=== PATIENT | female | born 1935 | race Two or more races ===

== ENCOUNTER 2016-04-27 14:15 | Outpatient (CLI) | payer MEDICARE, MEDICAID ==
[~2016-04-27 14:15] MED LIST: ALLO100T; CARV3.12; CEPH-570; DIPH25CA83; FLUR15CA14; FURO-144; GLIM2TAB; MELO7.5T12; ROSU20TA; SENN8.6T6; VALS1TAB4
[2016-04-27] MEDS ORDERED: DEXAMETHASONE SOD PHOSPHATE 4 MG/ML VIAL IJ ONE (15:30)
[2016-04-27] MEDS ORDERED: ETHYL CHLORIDE SPRAY 1 EA BOTTLE TP ONE (15:30)
== END 2016-04-27 23:59 | disposition home or self-care (01) ==
LOC: WOU 14:15
PROVIDERS: ATTEND Podiatrist Foot & Ankle Surgery
DX: M76.821 Posterior tibial tendinitis, right leg (principal); E11.42 Type 2 diabetes mellitus with diabetic polyneuropathy; E78.5 Hyperlipidemia, unspecified
CPT/HCPCS: 20550; A6402; J1100

== ENCOUNTER 2016-05-04 11:01 | Outpatient (CLI) | payer MEDICARE, MEDICAID | END 2016-05-04 23:59 | disposition home or self-care (01) | LOC: WOU 11:01 | PROVIDERS: ATTEND Podiatrist Foot & Ankle Surgery | DX: M21.071 Valgus deformity, not elsewhere classified, right ankle (principal); M21.41 Flat foot [pes planus] (acquired), right foot; B35.1 Tinea unguium; R60.0 Localized edema; E11.9 Type 2 diabetes mellitus without complications | CPT/HCPCS: G0463 ==

== ENCOUNTER 2016-08-25 19:31 | Emergency (ER) | payer MEDICARE, OTHER ==
[~2016-08-25] VITALS: Ht 152.4 cm; Wt 81.6 kg
[2016-08-25] MEDS ORDERED: MORPHINE SULFATE INJ 2 MG/ML DISP.SYRIN ONE (19:55)
[2016-08-25] MEDS ORDERED: IV SET PRIMARY 1 EA INFUS.SET MC ONE (19:55)
[2016-08-25] MEDS ORDERED: IV NS 0.9% 1,000 ML ONE (19:55)
[2016-08-25] MEDS ORDERED: ONDANSETRON HCL/PF 4 MG/2 ML VIAL ONE (19:55)
[2016-08-25 20:00] LABS: BASOPHILS % (AUTO) 0.3 % (0.0-2.0); EOSINOPHILS # (AUTO) 0.1 /CMM (0.0-0.7); EOSINOPHILS % (AUTO) 1.5 % (0.0-6.0); HEMATOCRIT 30 % (33-45); HEMOGLOBIN 10.6 g/dL (11.5-14.8); LYMPHOCYTES # (AUTO) 1.3 /CMM (0.8-4.8); LYMPHOCYTES % (AUTO) 14.3 % (20.0-44.0); MEAN CORPUSCULAR HEMOGLOBIN 30 PG (26.0-33.0); MEAN CORPUSCULAR HGB CONC 35 g/dl (31.0-36.0); MEAN CORPUSCULAR VOLUME 86 fL (82-100); MONOCYTES # (AUTO) 1.1 /CMM (0.1-1.30); MONOCYTES % (AUTO) 11.5 % (2.0-12.0); NEUTROPHILS # (AUTO) 6.8 /CMM (1.8-8.9); NEUTROPHILS % (AUTO) 72.4 % (43.0-81.0); PLATELET COUNT (AUTO) 333 /CMM (150-450); RDW COEFFICIENT OF VARIATION 12.7 (11.5-15.0); RED BLOOD CELL COUNT(AUTO) 3.49 MIL/uL (4.0-5.2); WHITE BLOOD COUNT (AUTO) 9.3 K/uL (4.3-11.0)
[2016-08-25] MEDS ORDERED: MORPHINE SULFATE INJ 2 MG/ML DISP.SYRIN IV ONE (20:00)
[2016-08-25] MEDS ORDERED: ONDANSETRON HCL/PF 4 MG/2 ML VIAL IVP ONE (20:00)
[2016-08-25] MEDS ORDERED: IV NS 0.9% 1,000 ML BAG IV ONE (20:00)
[2016-08-25 20:01] LABS: APPEARANCE,URINE Clear (CLEAR); BILIRUBIN,URINE Negative (NEGATIVE); BLOOD, URINE Trace-lysed Ery/uL (NEGATIVE); COLOR,URINE Yellow (YELLOW); KETONES,URINE Negative (NEGATIVE); LEUKOCYTE ESTERASE ,URINE Negative (NEGATIVE); NITRITE, URINE Negative (NEGATIVE); PH,URINE 5.5 (5.0-8.0); PROTEIN,URINE Negative (NEGATIVE); UGLUCOSE Negative (NEGATIVE); UROBILINOGEN,URINE 0.2 EU/dL (0.2)
[2016-08-25 20:08] LABS: CALCIUM, SERUM 8.7 mg/dL (8.5-10.1); CARBON DIOXIDE 25 mmol/L (21-32); CHLORIDE 89 mmol/L (98-107); CREATININE 1.8 mg/dL (0.6-1.3); GLUCOSE 113 mg/dL (74-106); POTASSIUM 3.3 mmol/L (3.5-5.1); SODIUM SERUM 126 mmol/L (136-145); UREA NITROGEN, BLOOD 54 mg/dL (7-18)
[2016-08-25 20:13] LABS: ALANINE AMINOTRANSFERASE 18 U/L (12-78); ALKALINE PHOSPHATASE 56 U/L (46-116); ASPARTATE AMINOTRANSFERASE 16 U/L (15-37); BILIRUBIN,DIRECT 0.1 mg/dL (0.0-0.2); BILIRUBIN,TOTAL 0.4 mg/dL (0.2-1.0); LIPASE 154 U/L (73-393); TOTAL PROTEIN, SERUM 7.3 g/dL (6.4-8.2)
[2016-08-25 20:28] LABS: BACTERIA,URINE Rare /HPF (None Seen); RBC,URINE 0-2 /HPF (0-2); SQUAMOUS EPITHELIAL CELL,UR Few /HPF (None Seen); WBC,URINE NONE SEEN /HPF (0-3)
[2016-08-25] MEDS ORDERED: LEVOFLOXACIN (750 MG) 750 MG TABLET ONE (21:12)
[2016-08-25 21:24] VITALS: BP 148/67
[2016-08-25] MEDS ORDERED: LEVOFLOXACIN (750 MG) 750 MG TABLET PO SCH (21:30)
== END 2016-08-25 21:25 | disposition home or self-care (01) ==
LOC: ER 19:34
DX: K80.50 Calculus of bile duct without cholangitis or cholecystitis without obstruction (principal); E11.9 Type 2 diabetes mellitus without complications; J18.9 Pneumonia, unspecified organism; I10 Essential (primary) hypertension
CPT/HCPCS: 36415; 74176; 76705; 80048; 80076; 81001; 83690; 85025; 96361; 96374; 96375; 99285; A4606; J2270; J2405; J7030; 81000-TC; Z7610

== ENCOUNTER 2016-08-27 17:56 | Emergency (ER) | payer MEDICARE, OTHER ==
[~2016-08-27] VITALS: Ht 152.4 cm; Wt 90.7 kg
--- NOTE | 2016-08-27 18:10 | NUR ---
PT BIB FAMILY [facility] FOR CONSTIPATION X 4 DAYS. PER SON, PT TRIED ENEMA AT HOME TODAY WITH NO RELIEF.DENIES FEVER, N/V TODAY. SEEN BY MARGARITA BARLOW FOR EVAL. VSS. COMPLAINS OF ABD PAIN. SAFETY AND COMFORT MEASURES PROVIDED. WILL MONITOR.
[2016-08-27] MEDS ORDERED: NA PHOS,M-B/NA PHOS,DI-BA 1 EA ENEMA RC ONE ×2 (18:16→18:30)
--- NOTE | 2016-08-27 18:32 | NUR ---
PT MEDICATED ORDERED. SAFELY ASSISTED TO THE RESTROOM.
[2016-08-27] MEDS ORDERED: LIDOCAINE VISCOUS 2% UD 15 ML UDC ONE (18:46)
[2016-08-27] MEDS ORDERED: MAG HYDROX/AL HYDROX/SIMETH 30 ML UDC ONE (18:46)
--- NOTE | 2016-08-27 18:58 | NUR ---
PT MEDICATED ORDERED,
[2016-08-27] MEDS ORDERED: MAG HYDROX/AL HYDROX/SIMETH 30 ML UDC PO ONE (19:00)
[2016-08-27] MEDS ORDERED: LIDOCAINE VISCOUS 2% UD 15 ML UDC MM ONE (19:00)
[2016-08-27] MEDS ORDERED: IV SET PRIMARY PUMP SET 1 EA INFUS.SET MC ONE ×2 (19:08→19:51)
[2016-08-27] MEDS ORDERED: IV NS 0.9% 1,000 ML ONE (19:08)
--- NOTE | 2016-08-27 19:20 | NUR ---
started a saline lock on the right forearm g20, blood drawn and sent to lab.
[2016-08-27 19:24] LABS: BASOPHILS % (AUTO) 0.2 % (0.0-2.0); EOSINOPHILS # (AUTO) 0.1 /CMM (0.0-0.7); EOSINOPHILS % (AUTO) 0.9 % (0.0-6.0); HEMATOCRIT 34 % (33-45); HEMOGLOBIN 11.4 g/dL (11.5-14.8); LYMPHOCYTES # (AUTO) 1.1 /CMM (0.8-4.8); LYMPHOCYTES % (AUTO) 14.1 % (20.0-44.0); MEAN CORPUSCULAR HEMOGLOBIN 29 PG (26.0-33.0); MEAN CORPUSCULAR HGB CONC 33 g/dl (31.0-36.0); MEAN CORPUSCULAR VOLUME 86 fL (82-100); MONOCYTES % (AUTO) 13.2 % (2.0-12.0); NEUTROPHILS # (AUTO) 5.3 /CMM (1.8-8.9); NEUTROPHILS % (AUTO) 71.6 % (43.0-81.0); PLATELET COUNT (AUTO) 443 /CMM (150-450); RDW COEFFICIENT OF VARIATION 12.7 (11.5-15.0); RED BLOOD CELL COUNT(AUTO) 3.97 MIL/uL (4.0-5.2); WHITE BLOOD COUNT (AUTO) 7.5 K/uL (4.3-11.0)
[2016-08-27] MEDS ORDERED: IV NS 0.9% 1,000 ML BAG IV ONE (19:30)
[2016-08-27 19:33] LABS: CARBON DIOXIDE 25 mmol/L (21-32); CHLORIDE 92 mmol/L (98-107); CREATININE 1.7 mg/dL (0.6-1.3); GLUCOSE 61 mg/dL (74-106); SODIUM SERUM 129 mmol/L (136-145); UREA NITROGEN, BLOOD 34 mg/dL (7-18)
[2016-08-27 19:35] LABS: POTASSIUM 2.8 mmol/L (3.5-5.1)
[2016-08-27] MEDS ORDERED: POTASSIUM CHLORIDE 20 MEQ TAB.PRT.SR PO ONE ×2 (19:50→20:00)
[2016-08-27] MEDS ORDERED: POTASSIUM CL. PREMIX PERIPHER. 50 ML ONE (19:51)
[2016-08-27] MEDS ORDERED: MAGNESIUM CITRATE 296 ML BOTTLE ONE (19:51)
[2016-08-27] MEDS ORDERED: MAGNESIUM CITRATE 296 ML BOTTLE PO ONE (20:00)
[2016-08-27] MEDS: POTASSIUM CL. PREMIX PERIPHER. 50 ML IV SCH ×2 (20:02→21:12)
[2016-08-27] MEDS ORDERED: IV NS 0.9% 250 ML IV ONE (20:13)
[2016-08-27] MEDS ORDERED: IV SET PRIMARY 1 EA INFUS.SET MC ONE (20:13)
[2016-08-27 20:22] LABS: TROPONIN I < 0.017 ng/mL (0.00-0.056)
[2016-08-27 20:27] LABS: MAGNESIUM 1.5 mg/dL (1.8-2.4); PHOSPHORUS 4.8 mg/dL (2.5-4.9)
[2016-08-27] MEDS ORDERED: IV NS 0.9% 250 ML BAG IV ONE (20:30)
--- NOTE | 2016-08-27 20:50 | NUR ---
encouraged patient to drink juice for blood sugar of 61.
--- NOTE | 2016-08-27 21:00 | NUR ---
patient refused second potassium bag, notified MARGARITA Vazquez.
--- NOTE | 2016-08-27 21:23 | NUR ---
IV removed. Catheter intact and site benign. Pressure and 4x4 applied to site. No bleeding noted. Patient discharged to home in stable condition. Written and verbal after care instructions given. Patient verbalizes understanding of instruction. Patient is ambulatory with steady gait, accompanied by son. No further complaints.
[2016-08-27 21:25] VITALS: BP 141/62
== END 2016-08-27 21:26 | disposition home or self-care (01) ==
LOC: ER 17:59
DX: R10.13 Epigastric pain (principal); E87.6 Hypokalemia; E83.42 Hypomagnesemia; N28.9 Disorder of kidney and ureter, unspecified; I10 Essential (primary) hypertension; E11.9 Type 2 diabetes mellitus without complications
CPT/HCPCS: 36415; 74000-TC; 80048-TC; 83735-TC; 84100-TC; 84484-TC; 85025-TC; A4606; J3480; J7030; J7050; Z7610

== ENCOUNTER 2016-11-27 12:21 | Emergency (ER) | payer MEDICARE, OTHER ==
[~2016-11-27] VITALS: Ht 157.5 cm; Wt 74.8 kg
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
--- NOTE | 2016-11-27 12:51 | NUR ---
PT TAKEN TO CT.
--- NOTE | 2016-11-27 14:16 | NUR ---
Patient discharged to home in stable condition. Written and verbal after care instructions given. Patient verbalizes understanding of instruction.
[2016-11-27 14:17] VITALS: BP 109/65
== END 2016-11-27 14:17 | disposition home or self-care (01) ==
LOC: ER 12:23
DX: S20.211A Contusion of right front wall of thorax, initial encounter (principal); E11.9 Type 2 diabetes mellitus without complications; I10 Essential (primary) hypertension; W19.XXXA Unspecified fall, initial encounter; Y93.89 Activity, other specified; Y92.89 Other specified places as the place of occurrence of the external cause; Y99.8 Other external cause status
CPT/HCPCS: 71100-TC; 72170-TC; A4606; Z7610

== ENCOUNTER 2017-08-02 11:12 | Emergency (ER) | payer MEDICARE, OTHER ==
[~2017-08-02] VITALS: Ht 152.4 cm; Wt 72.6 kg
[~2017-08-02 11:12] MED LIST changes: -ALLO100T; +ALLO100T PO; -FURO-144; +FURO-144 PO; -GLIM2TAB; +GLIM2TAB PO; +SENN-167; -SENN8.6T6
--- NOTE | 2017-08-02 11:12 | NUR ---
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 PLACED ON MONITOR. AWAITING MD ORDER
[2017-08-02] MEDS ORDERED: HYDROCODONE/APAP 5/325MG 1 EACH TABLET PO ONE (12:30)
[2017-08-02] MEDS ORDERED: HYDROCODONE/APAP 5/325MG 1 EACH TABLET ONE (12:35)
--- NOTE | 2017-08-02 14:31 | NUR ---
CALLED MD SHILA TORRES [phone] FOR CONTRERAS
[2017-08-02 14:58] LABS: BASOPHILS # (AUTO) 0.2 /CMM (0.0-0.2); BASOPHILS % (AUTO) 3.3 % (0.0-2.0); EOSINOPHILS % (AUTO) 1.4 % (0.0-6.0); HEMATOCRIT 30 % (33-45); HEMOGLOBIN 10.5 g/dL (11.5-14.8); LYMPHOCYTES # (AUTO) 1.3 /CMM (0.8-4.8); LYMPHOCYTES % (AUTO) 20.3 % (20.0-44.0); MEAN CORPUSCULAR HGB CONC 35 g/dl (31.0-36.0); MEAN CORPUSCULAR VOLUME 86 fL (82-100); MONOCYTES # (AUTO) 0.6 /CMM (0.1-1.30); MONOCYTES % (AUTO) 9.5 % (2.0-12.0); NEUTROPHILS # (AUTO) 4.1 /CMM (1.8-8.9); NEUTROPHILS % (AUTO) 65.5 % (43.0-81.0); PLATELET COUNT (AUTO) 352 /CMM (150-450); RDW COEFFICIENT OF VARIATION 13.1 (11.5-15.0); RED BLOOD CELL COUNT(AUTO) 3.53 MIL/uL (4.0-5.2); WHITE BLOOD COUNT (AUTO) 6.3 K/uL (4.3-11.0)
[2017-08-02] MEDS ORDERED: IV NS 0.9% 500 ML BAG IV ONE (15:00)
[2017-08-02 15:08] LABS: CALCIUM, SERUM 8.7 mg/dL (8.5-10.1); CARBON DIOXIDE 24 mmol/L (21-32); CHLORIDE 105 mmol/L (98-107); CREATININE 1.2 mg/dL (0.6-1.3); GLUCOSE 122 mg/dL (74-106); POTASSIUM 4.3 mmol/L (3.5-5.1); SODIUM SERUM 137 mmol/L (136-145); UREA NITROGEN, BLOOD 29 mg/dL (7-18)
[2017-08-02] MEDS ORDERED: ESOM40CA PO (15:09)
[2017-08-02] MEDS ORDERED: AMLO5TAB7 PO (15:09)
[2017-08-02] MEDS ORDERED: RALO60TA PO (15:09)
[2017-08-02] MEDS ORDERED: CARV6.252 PO (15:09)
[2017-08-02] MEDS ORDERED: ICOS1CAP PO (15:09)
[2017-08-02] MEDS ORDERED: AMIT10TA6 PO (15:09)
[2017-08-02] MEDS ORDERED: MEMA10TA PO (15:09)
[2017-08-02] MEDS ORDERED: VALS160T2 PO (15:09)
[2017-08-02] MEDS ORDERED: SITA100T PO (15:09)
[2017-08-02] MEDS ORDERED: GABA-532 PO (15:09)
[2017-08-02] MEDS ORDERED: PHEN100C4 PO (15:09)
[2017-08-02] MEDS ORDERED: ATOR20TA PO (15:09)
[2017-08-02 15:14] LABS: ALANINE AMINOTRANSFERASE 15 U/L (12-78); ALBUMIN 3.2 g/dL (3.4-5.0); ALKALINE PHOSPHATASE 53 U/L (46-116); ASPARTATE AMINOTRANSFERASE 16 U/L (15-37); BILIRUBIN,DIRECT 0.1 mg/dL (0.0-0.2); BILIRUBIN,TOTAL 0.2 mg/dL (0.2-1.0); TOTAL PROTEIN, SERUM 6.9 g/dL (6.4-8.2)
[2017-08-02 15:25] VITALS: BP 150/78
--- NOTE | 2017-08-02 15:41 | NUR ---
Patient does not wish to proceed with medical care recommended by (GOVIND ANDERSON ). Patient given information related to possible complications, up to and including , which could occur as a result of leaving the hospital at this time. Patient verbalizes understanding of risks involved due to leaving against medical advice. Patient has signed AMA form.
== END 2017-08-02 15:43 | disposition left against medical advice (07) ==
LOC: ER 11:13
DX: M84.474A Pathological fracture, right foot, initial encounter for fracture (principal); M84.475A Pathological fracture, left foot, initial encounter for fracture; D64.9 Anemia, unspecified; E11.51 Type 2 diabetes mellitus with diabetic peripheral angiopathy without gangrene; E11.65 Type 2 diabetes mellitus with hyperglycemia; E78.5 Hyperlipidemia, unspecified; I10 Essential (primary) hypertension; I25.10 Atherosclerotic heart disease of native coronary artery without angina pectoris; R79.89 Other specified abnormal findings of blood chemistry; I70.201 Unspecified atherosclerosis of native arteries of extremities, right leg; M81.0 Age-related osteoporosis without current pathological fracture; Z79.84 Long term (current) use of oral hypoglycemic drugs
CPT/HCPCS: 36415; 80048; 80076; 82962; 85025; 93005; 93925; 93970; 99285; A4606; Z7610

== ENCOUNTER 2017-08-04 13:07 | Outpatient (CLI) | payer MEDICARE, OTHER ==
[~2017-08-04 13:07] MED LIST changes: +AMIT10TA6 PO; +AMLO5TAB7 PO; +ATOR20TA PO; -CARV3.12; +CARV6.252 PO; -CEPH-570; -DIPH25CA83; +ESOM40CA PO; -FLUR15CA14; +GABA-532 PO; +ICOS1CAP PO; -MELO7.5T12; +MEMA10TA PO; +PHEN100C4 PO; +RALO60TA PO; -ROSU20TA; -SENN-167; +SITA100T PO; +VALS160T2 PO; -VALS1TAB4
[2017-08-04] MEDS ORDERED: DEXAMETHASONE SOD PHOSPHATE 4 MG/ML VIAL ONE (14:01)
[2017-08-04] MEDS ORDERED: ETHYL CHLORIDE SPRAY 1 EA BOTTLE TP ONE (14:30)
== END 2017-08-04 23:59 | disposition home or self-care (01) ==
LOC: WOU 13:07
PROVIDERS: ATTEND Podiatrist Foot & Ankle Surgery
DX: M72.2 Plantar fascial fibromatosis (principal); L84 Corns and callosities; E66.9 Obesity, unspecified; Z68.32 Body mass index [BMI] 32.0-32.9, adult; M21.42 Flat foot [pes planus] (acquired), left foot; M21.41 Flat foot [pes planus] (acquired), right foot; M19.072 Primary osteoarthritis, left ankle and foot; M19.071 Primary osteoarthritis, right ankle and foot
CPT/HCPCS: A6402; J1100; J3490